=== PATIENT | male | born 1955 | race Caucasian/White ===

== ENCOUNTER 2024-06-21 17:04 | Inpatient (IN) | payer MEDICARE ==
[2024-06-21] MEDS: Sodium Chloride 0.9% 1,000 ML IV ONE (17:20)
[2024-06-21] MEDS: Albuterol/Ipratropium 3.0-0.5 MG/3 ML Neb Soln NEB ONE ×2 (17:21→18:33)
[2024-06-21 17:24] LABS: BASOPHILS PERCENT AUTO 0.2 % (0.0-1.0); HEMATOCRIT 42.8 % (42.0-52.0); HEMOGLOBIN 13.7 gm/dl (14.0-18.0); IMMATURE GRAN ABSOLUTE AUTO 0.06 K/mm3 (0.00-0.05); IMMATURE GRAN PERCENT AUTO 0.5 % (0.0-0.4); LYMPHOCYTES ABSOLUTE AUTO 0.7 K/mm3 (1.0-4.8); LYMPHOCYTES PERCENT AUTO 5.8 % (24.0-44.0); MEAN CORPUSCULAR HEMOGLOBIN 29.1 pg (28.0-32.0); MEAN CORPUSCULAR VOLUME 90.9 fl (83.0-99.0); MEAN PLATELET VOLUME 9.3 fl (9.4-12.4); MONOCYTES ABSOLUTE AUTO 0.8 K/mm3 (0.0-0.8); MONOCYTES PERCENT AUTO 6.6 % (0.0-8.0); NEUTROPHILS ABSOLUTE AUTO 10.3 K/mm3 (1.8-7.7); NEUTROPHILS PERCENT AUTO 86.9 % (41.0-71.0); PLATELET COUNT,PLT 136 K/mm3 (150-400); RED BLOOD CELL COUNT 4.71 M/mm3 (4.52-5.90); WHITE BLOOD CELL COUNT,WBC 11.88 K/mm3 (3.9-11.3)
[2024-06-21] MEDS ORDERED: Sodium Chloride 0.9% 10 ML Syringe FLUSH PRN (17:26)
[2024-06-21] MEDS: Lactated Ringers 1,000 ML IV ONE (17:30)
[2024-06-21 17:31] LABS: BICARBONATE,ARTERIAL 14.6 meq/L (22.0-26.0); O2 SATURATION ARTERIAL 97.5 % (96.0-97.0); PCO2 ARTERIAL 29.3 mmHg (35.0-45.0)
[2024-06-21] MEDS: Sodium Bicarbonate 8.4% 50 MEQ/50 ML Syringe IVPUSH ONE (17:45)
[2024-06-21 17:47] LABS: A/G RATIO 1.1 (1-2); ALANINE AMINOTRANSFERASE,ALT 66 U/L (16-63); ALBUMIN 3.3 g/dl (3.4-5.0); ALKALINE PHOSPHATASE 74 U/L (46-116); ANION GAP 17.6 (5-15); ASPARTATE AMNIOTRANSFERASE,AST 78 U/L (15-37); BILIRUBIN TOTAL 1.1 mg/dL (0.2-1.0); BLOOD UREA NITROGEN,BUN 32 mg/dL (7-18); CALCIUM 9.1 mg/dL (8.5-10.1); CARBON DIOXIDE,CO2 21 mEq/L (21-32); CHLORIDE,CL 104 mEq/L (98-107); ESTIMATED GFR 35 mL/min (>60); GLUCOSE RANDOM 166 mg/dL (70-99); POTASSIUM,K 4.6 mEq/L (3.5-5.1); PROTEIN TOTAL,TP 6.3 g/dl (6.4-8.2); SODIUM,NA 138 mEq/L (136-145)
[2024-06-21] MEDS: methylPREDNISolone Sodium Succinate 125 MG/2 ML SDV IVPUSH ONE (18:02)
[2024-06-21] MEDS: Ertapenem 1 GM in Sodium Chloride 0.9% 50 ML IV ONE (18:26)
[2024-06-21] MEDS: Magnesium Sulfate/Water Premix 2 GM in Premix Bag 1 BAG IV ONE (18:35)
[2024-06-21 19:36] LABS: INR 1.31; PROTHROMBIN TIME 13.6 SECONDS (9.7-12.0); PTT,PARTIAL THROMBOPLSTIN TIME 24.7 SECONDS (21.7-31.4)
[2024-06-21] MEDS ORDERED: Morphine 2 MG/ML SYRINGE ONE ×3 (19:58→20:54)
[2024-06-21] MEDS ORDERED: Midazolam 1 MG/ML 2 ML SDV ONE ×2 (19:58→20:47)
[2024-06-21] MEDS ORDERED: Lidocaine 1% with EPINEPHrine 1:100,000 20 ML MDV INJECT ONE (20:00)
[2024-06-21] MEDS ORDERED: Lidocaine 1% 10 ML MDV ONE ×2 (20:01→20:04)
[2024-06-21] MEDS: Morphine 2 MG/ML SYRINGE IVPUSH ONE ×3 (20:07→21:00)
[2024-06-21] MEDS: Midazolam 1 MG/ML 2 ML SDV IVPUSH ONE ×2 (20:10→21:01)
[2024-06-21] MEDS: Lidocaine 1% 10 ML MDV INJECT ONE (20:15)
[2024-06-21] MEDS ORDERED: Midazolam 1 MG/ML 2 ML SDV IVPUSH ONE (20:31)
[2024-06-21 20:43] LABS: CORONAVIRUS COVID-19 NAA NEGATIVE (NEGATIVE); INFLUENZA A NAA NEGATIVE (NEGATIVE); RESPIRATORY SYNCYTIAL VIR NAA NEGATIVE (NEGATIVE)
[2024-06-21] MEDS ORDERED: Naloxone 0.4 MG/ML SDV IVPUSH PRN (20:48)
[2024-06-21 20:56] LABS: BASE EXCESS ARTERIAL -9.2 (-2-2.0); BICARBONATE,ARTERIAL 15.5 meq/L (22.0-26.0); O2 SATURATION ARTERIAL 88.7 % (96.0-97.0); PCO2 ARTERIAL 31.4 mmHg (35.0-45.0)
[2024-06-21] MEDS ORDERED: Sodium Chloride 0.9% 10 ML SDV FLUSH ONE (21:19)
[2024-06-21] MEDS: Iopamidol 755 Mg/ML 100 ML Bottle IVPUSH ONE (21:53)
[2024-06-21] MEDS: Sodium Chloride 0.9% 100 ML IV SCH (21:53)
[2024-06-21] MEDS: Phenylephrine 10 MG in Sodium Chloride 0.9% 99 ML IV SCH (22:06)
[2024-06-21] MEDS ORDERED: oxyCODONE 5 MG Tab PO PRN (22:13)
[2024-06-21] MEDS ORDERED: Acetaminophen 325 MG Tab PO PRN (22:13)
[2024-06-21] MEDS ORDERED: Morphine 2 MG/ML SYRINGE IVPUSH PRN (22:13)
[2024-06-21] MEDS ORDERED: Ondansetron 4 MG/2 ML SDV IV PRN (22:21)
[2024-06-21] MEDS ORDERED: Sennosides/Docusate Sodium 50-8.6 MG Tab PO PRN (22:21)
[2024-06-21] MEDS ORDERED: Melatonin 3 MG Tab PO PRN (22:21)
[2024-06-21] MEDS ORDERED: Heparin Sodium 5,000 Units/ML Vial ONE (22:24)
[2024-06-21] MEDS: Sodium Chloride 0.9% 500 ML ONE (22:32)
[2024-06-21] MEDS: Heparin Sodium/D5W 500 ML ONE (22:32)
[2024-06-21] MEDS ORDERED: Etomidate 2 MG/ML 20 ML SDV IVPUSH ONE (22:40)
[2024-06-21] MEDS ORDERED: propofoL 100 ML ONE (22:45)
[2024-06-21] MEDS ORDERED: propofoL 100 ML IV SCH (22:45)
[2024-06-21] MEDS: Piperacillin/Tazobactam 4.5 GM in Sodium Chloride 0.9% 100 ML IV ONE (22:45)
[2024-06-21] MEDS: Etomidate 2 MG/ML 20 ML SDV IVPUSH ONE (22:48)
[2024-06-21] MEDS: Succinylcholine 200 MG/10 ML MDV IV ONE (22:49)
[2024-06-21] MEDS ORDERED: Piperacillin/Tazobactam 4.5 GM in Sodium Chloride 0.9% 100 ML IV ONE (23:00)
[2024-06-21 23:17] LABS: BASOPHILS PERCENT AUTO 0.1 % (0.0-1.0); HEMATOCRIT 44.7 % (42.0-52.0); HEMOGLOBIN 14.1 gm/dl (14.0-18.0); IMMATURE GRAN ABSOLUTE AUTO 0.06 K/mm3 (0.00-0.05); IMMATURE GRAN PERCENT AUTO 0.4 % (0.0-0.4); LYMPHOCYTES ABSOLUTE AUTO 0.7 K/mm3 (1.0-4.8); LYMPHOCYTES PERCENT AUTO 5.1 % (24.0-44.0); MEAN CORPUSCULAR HEMOGLOBIN 29.3 pg (28.0-32.0); MEAN CORPUSCULAR HGB CONC 31.5 g/dl (32.0-36.0); MEAN CORPUSCULAR VOLUME 92.7 fl (83.0-99.0); MEAN PLATELET VOLUME 9.3 fl (9.4-12.4); MONOCYTES ABSOLUTE AUTO 0.6 K/mm3 (0.0-0.8); MONOCYTES PERCENT AUTO 4.6 % (0.0-8.0); NEUTROPHILS ABSOLUTE AUTO 12.4 K/mm3 (1.8-7.7); NEUTROPHILS PERCENT AUTO 89.8 % (41.0-71.0); PLATELET COUNT,PLT 128 K/mm3 (150-400); RED BLOOD CELL COUNT 4.82 M/mm3 (4.52-5.90); WHITE BLOOD CELL COUNT,WBC 13.82 K/mm3 (3.9-11.3)
[2024-06-21] MEDS ORDERED: Sodium Chloride 0.9% 1,000 ML ONE (23:23)
[2024-06-21] MEDS ORDERED: Sodium Chloride 0.9% 1,000 ML IV ONE (23:25)
[2024-06-21] MEDS: Lactated Ringers 1,000 ML IV SCH (23:25)
[2024-06-21] MEDS: Hydrocortisone Sodium Succinate 100 MG/2 ML SDV IVPUSH SCH (23:30)
[2024-06-21] MEDS ORDERED: EPINEPHrine 1 MG in Dextrose 5% in Water 99 ML IV SCH (23:30)
[2024-06-21 23:42] LABS: A/G RATIO 1.1 (1-2); ANION GAP 22.2 (5-15); BILIRUBIN TOTAL 1.6 mg/dL (0.2-1.0); BUN/CREATININE RATIO 16.8 (14-18); CALCIUM 8.5 mg/dL (8.5-10.1); CREATININE 2.2 mg/dL (0.7-1.3); EST CRCL DRUG DOSING (CG) 28.19 mL/min; MAGNESIUM 2.6 mg/dL (1.8-2.4); PHOSPHORUS 6.1 mg/dL (2.6-4.7); PROTEIN TOTAL,TP 5.7 g/dl (6.4-8.2)
[2024-06-22 00:04] LABS: BASE EXCESS ARTERIAL -13.9 (-2-2.0); BICARBONATE,ARTERIAL 13.3 meq/L (22.0-26.0); PCO2 ARTERIAL 36.1 mmHg (35.0-45.0)
[2024-06-22] MEDS: Heparin Sodium 5,000 Units/ML Vial IVPUSH ONE (00:06)
[2024-06-22] MEDS: Heparin Sodium/D5W 25,000 UNITS/500 ML BAG IV SCH (00:07)
[2024-06-22 00:17] LABS: POTASSIUM,K 6.2 mEq/L (3.5-5.1)
[2024-06-22] MEDS: Sodium Bicarbonate 8.4% 50 MEQ/50 ML SDV IVPUSH ONE (00:45)
[2024-06-22] MEDS: Calcium Gluconate 10% 1 GM/10 ML SDV IV ONE (00:45)
[2024-06-22] MEDS ORDERED: 50% Dextrose in Water 50 ML Syringe IVPUSH PRN (00:45)
[2024-06-22] MEDS ORDERED: EPINEPHrine 1:10,000 1 MG/10 ML Syringe ONE ×5 (01:00)
[2024-06-22] MEDS ORDERED: Sodium Bicarbonate 8.4% 50 MEQ/50 ML Syringe ONE (01:00)
[2024-06-22] MEDS ORDERED: Sodium Bicarbonate 8.4% 50 MEQ/50 ML SDV ONE (01:06)
[2024-06-22] MEDS ORDERED: Calcium Gluconate 10% 1 GM/10 ML SDV ONE ×2 (01:06→01:07)
[2024-06-22] MEDS ORDERED: Piperacillin/Tazobactam 4.5 GM in Sodium Chloride 0.9% 100 ML IV SCH (04:00)
[2024-06-22 09:19] VITALS: BP 88/65
[2024-06-22 09:25] VITALS: PULSE 171
[2024-06-23] MEDS: 50% Dextrose in Water 50 ML Syringe IVPUSH ONE (02:47)
[2024-06-23] MEDS: 50% Dextrose in Water 50 ML Syringe ONE (02:48)
== END 2024-06-22 15:00 | disposition expired | DRG 208 ==
LOC: JD.ED 17:04 → JD.ICU 19:34 → JD.MS 06-22 13:41
PROVIDERS: ADMIT Student in an Organized Health Care Education/Training Program; ATTEND Student in an Organized Health Care Education/Training Program
PROC: 3E033XZ Introduction of Vasopressor into Peripheral Vein, Percutaneous Approach (ICD-10-PCS; 2024-06-21)
PROC: 5A09357 Assistance with Respiratory Ventilation, Less than 24 Consecutive Hours, Continuous Positive Airway Pressure (ICD-10-PCS; 2024-06-21)
PROC: 4A133R1 Monitoring of Arterial Saturation, Peripheral, Percutaneous Approach (ICD-10-PCS; 2024-06-21)
PROC: 5A1935Z Respiratory Ventilation, Less than 24 Consecutive Hours (ICD-10-PCS; principal; 2024-06-22)
PROC: 0BH17EZ Insertion of Endotracheal Airway into Trachea, Via Natural or Artificial Opening (ICD-10-PCS; 2024-06-22)
PROC: 03HY32Z Insertion of Monitoring Device into Upper Artery, Percutaneous Approach (ICD-10-PCS; 2024-06-22)
PROC: 4A133B1 Monitoring of Arterial Pressure, Peripheral, Percutaneous Approach (ICD-10-PCS; 2024-06-22)
PROC: 4A133J1 Monitoring of Arterial Pulse, Peripheral, Percutaneous Approach (ICD-10-PCS; 2024-06-22)
PROC: 5A12012 Performance of Cardiac Output, Single, Manual (ICD-10-PCS; 2024-06-22)
DX: J18.9 Pneumonia, unspecified organism (principal); I95.9 Hypotension, unspecified; R77.8 Other specified abnormalities of plasma proteins; J96.01 Acute respiratory failure with hypoxia; I21.4 Non-ST elevation (NSTEMI) myocardial infarction; N17.9 Acute kidney failure, unspecified; J44.1 Chronic obstructive pulmonary disease with (acute) exacerbation; R57.9 Shock, unspecified; E87.20 Acidosis, unspecified; I48.91 Unspecified atrial fibrillation; E78.5 Hyperlipidemia, unspecified; I50.9 Heart failure, unspecified; M19.90 Unspecified osteoarthritis, unspecified site; I45.10 Unspecified right bundle-branch block; I71.40 Abdominal aortic aneurysm, without rupture, unspecified; J43.9 Emphysema, unspecified; R74.01 Elevation of levels of liver transaminase levels; Z95.2 Presence of prosthetic heart valve; Z79.01 Long term (current) use of anticoagulants; Z79.899 Other long term (current) drug therapy; Z87.891 Personal history of nicotine dependence; Z98.52 Vasectomy status; W19.XXXA Unspecified fall, initial encounter
CPT/HCPCS: 0241U; 36415; 36600; 70450; 71045; 80053; 82550; 82803; 82947; 83605; 83735; 83880; 84100; 84484; 85025; 85379; 85384; 85610; 85730; 86850; 86900; 86901; 87040; 93005; 94002; 94640; 94660; 93010; 96361; 96365; 96368; 96375; 99223; 99285; 99285-25; C1751; J0171; J0330; J0612; J1335; J1644; J1720; J2250; J2270; J2371; J2543; J2704; J2919; J3475; J3490; J7030; J7060; J7120; J7620-GY; Q9967